=== PATIENT | male | born 1995 ===

== ENCOUNTER → 2019-03-23 | Outpatient (REF) | LOC: M LAB LCGH 15:48 | PROVIDERS: ATTEND Surgery | DX: L05.91 Pilonidal cyst without abscess (principal) ==

== ENCOUNTER → 2023-07-06 | Outpatient (REF) | payer OTHER ==
[2023-07-06 13:23] LABS: SEMEN APPEARANCE OPAQUE (OPAQUE)
[2023-07-06 13:24] LABS: SEMEN VISCOSITY LIQUID (LIQUID); SEMEN VOLUME 3.2 ml (2.0-5.0); SPERM CONCENTRATION 65.9 M/ml (>=15.0); WBC CONCENTRATION <=1 M/ml (<=1 M/ml)
== END ==
LOC: M LAB REF 12:00
PROVIDERS: ATTEND Specialist
DX: N46.9 Male infertility, unspecified (principal)

== ENCOUNTER → 2023-07-23 | Outpatient (REF) | payer BC, OTHER ==
[2023-07-23 15:05] LABS: SEMEN APPEARANCE OPAQUE (OPAQUE); SEMEN VOLUME 3.6 ml (2.0-5.0)
[2023-07-23 15:06] LABS: SEMEN VISCOSITY VISCOUS (LIQUID); SEMEN pH 8.5 (7.0-8.0); WBC CONCENTRATION >1 M/ml (<=1 M/ml)
== END ==
LOC: M LAB REF 14:51
PROVIDERS: ATTEND Specialist
DX: N46.9 Male infertility, unspecified (principal)

== ENCOUNTER → 2024-02-18 | Outpatient (REF) | LOC: M LAB REF 09:13 | DX: Z02.89 Encounter for other administrative examinations (principal) ==